=== PATIENT | female | born 2000 | race Caucasian/White ===

== ENCOUNTER 2018-11-23 09:40 | Emergency (ER) | payer BC ==
[~2018-11-23] VITALS: Ht 167.6 cm; Wt 96.6 kg
[~2018-11-23 09:40] MED LIST: BUSP15 PO; Bactrim Ds Tab1 EACH PO; Benadryl 50 mg50 MG PO; CEPH500 PO; Cleocin HCl300 MG PO; Fluoxetine HCl20 M1 PO; HYDACE5 PO; IBUP600 PO; Keflex500 MG PO; MONO-LINYAH1 EACH PO; Norco 5-325 Ta1 EACH PO; Pyridium100 MG PO; SULF10OPSA OU; SULTRISS PO; Sprintec1 EACH PO; VENL37.5 PO; Zofran4 MG PO
[2018-11-23 10:04] LABS: Source, Urine Clean Catch
[2018-11-23 10:10] LABS: Bilirubin, Urine Neg (Neg); Blood, Urine 5+ (Neg); Glucose Qualitative, Urine Neg (Neg); Ketones, Urine Neg (Neg); Leukocyte Esterase, Urine 2+ (Neg); Nitrite, Urine Neg (Neg); Protein, Urine 2+ (Neg); Specific Gravity, Urine 1.015 (1.003-1.022); Urobilinogen, Urine NORM (Normal)
[2018-11-23 10:20] LABS: Appearance, Urine Hazy (Clear); Color, Urine Red (P-Yellow)
[2018-11-23 10:21] LABS: Bacteria Few /hpf; Red Blood Cells, Urine 50-100 /hpf (0-2); Squamous Epithelial Cells Few /hpf (Few)
[2018-11-23 10:32] LABS: BASOPHILS ABSOLUTE AUTO 0.07 K/mm3 (0.00-0.23); BASOPHILS PERCENT AUTO 1 % (0-2); EOSINOPHILS PERCENT AUTO 3 % (0-6); Hematocrit 41.2 % (33.0-51.0); Hemoglobin 13.8 g/dL (11.5-16.0); IMMATURE GRAN ABSOLUTE AUTO 0.04 K/mm3 (0.00-0.10); IMMATURE GRAN PERCENT AUTO 0 % (0-1); LYMPHOCYTES ABSOLUTE AUTO 1.75 K/mm3 (0.84-5.20); LYMPHOCYTES PERCENT AUTO 14 % (21-46); MONOCYTES ABSOLUTE AUTO 0.91 K/mm3 (0.16-1.47); MONOCYTES PERCENT AUTO 7 % (4-13); Mean Corpuscular HGB 28.6 pg (26.0-34.0); Mean Corpuscular HGB Conc 33.5 g/dL (31.5-36.5); Mean Corpuscular Volume 85 fL (80-100); Mean Platelet Volume 10.9 fL (9.1-12.4); NEUTROPHILS ABSOLUTE AUTO 9.14 K/mm3 (1.96-9.15); NEUTROPHILS PERCENT AUTO 74 % (41-73); Platelet Count 271 K/mm3 (150-400); RDW Standard Deviation 37.4 fL (35.1-46.3); Red Blood Cell Count 4.83 M/mm3 (3.80-5.20); White Blood Cell Count 12.31 K/mm3 (4.00-11.30)
[2018-11-23 10:48] LABS: Alanine Aminotransfer (ALT/SGP 28 U/L (12-78); Albumin, Blood 3.9 g/dL (3.4-5.0); Alk Phos 67 U/L (50-136); Anion Gap 7 mmol/L (6-16); Aspartate Aminotrans (AST/SGOT 16 U/L (12-37); Bilirubin, Total 0.5 mg/dL (0.1-1.0); Blood Urea Nitrogen 12 mg/dL (8-24); Bun/Creatinine Ratio 18.4 (12.0-20.0); CO2, Blood 25 mmol/L (21-32); Calcium, Blood 8.6 mg/dL (8.5-10.1); Chloride, Blood 107 mmol/L (98-108); Creatinine, Blood 0.65 mg/dL (0.40-1.00); Glomerular Filtration Rate >60 (60-); Glucose, Blood 93 mg/dL (70-99); Potassium, Blood 4.1 mmol/L (3.5-5.5); Sodium, Blood 139 mmol/L (136-145); Total Protein, Blood 7.9 g/dL (6.4-8.2)
[2018-11-23] MEDS ORDERED: ONDA4ODT MM (12:26)
[2018-11-23] MEDS ORDERED: IBUP800 PO (12:26)
[2018-11-23] MEDS ORDERED: CEPH500 PO (12:26)
== END 2018-11-23 12:47 | disposition home or self-care (01) ==
LOC: ER 09:40
PROVIDERS: Emergency Medicine
DX: O23.41 Unspecified infection of urinary tract in pregnancy, first trimester (principal); O99.89 Other specified diseases and conditions complicating pregnancy, childbirth and the puerperium; N94.6 Dysmenorrhea, unspecified; Z88.8 Allergy status to other drugs, medicaments and biological substances; Z91.013 Allergy to seafood; Z79.899 Other long term (current) drug therapy; O99.331 Smoking (tobacco) complicating pregnancy, first trimester; F17.210 Nicotine dependence, cigarettes, uncomplicated; Z3A.01 Less than 8 weeks gestation of pregnancy
CPT/HCPCS: 36415; 76801; 76817; 80053; 81001; 81025; 83690; 84702; 85025; 86900; 86901; 87086; 96374; 96375; 99284-25; J1200; J2765; J7120

== ENCOUNTER 2020-09-14 05:38 | Inpatient (IN) | payer BC, OTHER ==
[~2020-09-14] VITALS: Ht 165.1 cm; Wt 92.3 kg
[~2020-09-14 05:38] MED LIST changes: +IBUP800 PO; +ONDA4ODT MM
[2020-09-14] MEDS ORDERED: PROM25 (05:55)
[2020-09-14] MEDS ORDERED: PRENATAL TABLE1 EAC2 (05:55)
[2020-09-14] MEDS ORDERED: BUSP10 PO (05:56)
[2020-09-14 06:16] LABS: BASOPHILS ABSOLUTE AUTO 0.03 K/mm3 (0.00-0.23); BASOPHILS PERCENT AUTO 0 % (0-2); EOSINOPHILS ABSOLUTE AUTO 0.05 K/mm3 (0.00-0.68); EOSINOPHILS PERCENT AUTO 1 % (0-6); Hematocrit 32.8 % (33.0-51.0); Hemoglobin 11.2 g/dL (11.5-16.0); IMMATURE GRAN ABSOLUTE AUTO 0.04 K/mm3 (0.00-0.10); IMMATURE GRAN PERCENT AUTO 0 % (0-1); LYMPHOCYTES ABSOLUTE AUTO 1.95 K/mm3 (0.84-5.20); LYMPHOCYTES PERCENT AUTO 18 % (21-46); MONOCYTES ABSOLUTE AUTO 1.07 K/mm3 (0.16-1.47); MONOCYTES PERCENT AUTO 10 % (4-13); Mean Corpuscular HGB 29.8 pg (26.0-34.0); Mean Corpuscular HGB Conc 34.1 g/dL (31.5-36.5); Mean Corpuscular Volume 87 fL (80-100); Mean Platelet Volume 10.8 fL (9.1-12.4); NEUTROPHILS ABSOLUTE AUTO 7.44 K/mm3 (1.96-9.15); NEUTROPHILS PERCENT AUTO 70 % (41-73); Platelet Count 282 K/mm3 (150-400); RDW Coefficient Variation 12.8 % (11.7-14.2); RDW Standard Deviation 40.3 fL (35.1-46.3); Red Blood Cell Count 3.76 M/mm3 (3.80-5.20); White Blood Cell Count 10.58 K/mm3 (4.00-11.30)
[2020-09-15 06:02] LABS: Hematocrit 32.4 % (33.0-51.0); Hemoglobin 10.8 g/dL (11.5-16.0); Mean Corpuscular HGB 29.7 pg (26.0-34.0); Mean Corpuscular HGB Conc 33.3 g/dL (31.5-36.5); Mean Corpuscular Volume 89 fL (80-100); Mean Platelet Volume 11.2 fL (9.1-12.4); Platelet Count 257 K/mm3 (150-400); RDW Coefficient Variation 12.8 % (11.7-14.2); Red Blood Cell Count 3.64 M/mm3 (3.80-5.20); White Blood Cell Count 13.75 K/mm3 (4.00-11.30)
--- NOTE | 2020-09-15 08:07 | NUR ---
PT WOULD LIKE TO SIGN HER SELF UP
[2020-09-15] MEDS ORDERED: IBU800 MG PO (09:08)
--- NOTE | 2020-09-15 09:11 | NUR ---
DISCHARGE INSTRUCTIONS, WRITTEN AND VERBAL, GIVEN TO PT AND Christian MARES. ANSWERED ALL QUESTIONS AND CONCERNS. IV DISCONTINUED. WRITTEN PRESCRIPTION HANDED TO PATIENT. FOLLOW UP APPOINTMENT TO BE SCHEDULED. PT IS READY FOR DISCHARGE.
--- NOTE | 2020-09-15 09:14 | NUR ---
PT REFUSED FLU AND TDAP VACCINES.
--- NOTE | 2020-09-15 09:57 | NUR ---
FOLLOW UP APPOINTMENT SCHEDULED. PT IS DISCHARGED HOME.
== END 2020-09-15 10:10 | disposition home or self-care (01) | DRG 807 ==
LOC: OBS 05:38 → BC 05:51
PROVIDERS: ADMIT Advanced Practice Midwife
PROC: 10E0XZZ Delivery of Products of Conception, External Approach (ICD-10-PCS; principal; 2020-09-14)
DX: O48.0 Post-term pregnancy (principal); Z37.0 Single live birth; O99.344 Other mental disorders complicating childbirth; F41.9 Anxiety disorder, unspecified; F32.9 Major depressive disorder, single episode, unspecified; O70.0 First degree perineal laceration during delivery; Z3A.41 41 weeks gestation of pregnancy
CPT/HCPCS: 36415; 85025; 85027; 86850; 86900; 86901; J1885; J2590; J7120; U0004

== ENCOUNTER 2024-11-20 06:09 | Day surgery (SDC) | payer OTHER ==
[~2024-11-20] VITALS: Ht 165.1 cm; Wt 83.4 kg
[~2024-11-20 06:09] MED LIST changes: +BUSP10 PO; +IBU800 MG PO; +PRENATAL TABLE1 EAC2; +PROM25
[2024-11-20] MEDS ORDERED: SYMBICORT 160-4.6 GM INH (06:37)
[2024-11-20] MEDS ORDERED: MONT10T PO (06:38)
[2024-11-20] MEDS ORDERED: ALBU90OI INH (06:38)
[2024-11-20] MEDS ORDERED: FLUT1DIS5 INH (06:38)
[2024-11-20] MEDS ORDERED: Lactated Ringer's 1,000 ML IV ONE (07:01)
[2024-11-20] MEDS ORDERED: Midazolam HCl 1MG / ML 2ML Vial ONE (07:08)
[2024-11-20] MEDS ORDERED: propofoL 20 ML IV ONE (07:08)
[2024-11-20] MEDS ORDERED: FentaNYL Citrate 50 MCG/ML 2 ML Injection ONE (07:08)
[2024-11-20] MEDS ORDERED: Rocuronium Bromide 10 MG/ML 5ML Injection IV ONE (07:09)
[2024-11-20] MEDS ORDERED: EPINEPhrine HCl 1 MG/ML 1ML Amp ONE (07:33)
[2024-11-20] MEDS ORDERED: Ketorolac Tromethamine 30mg Vial ONE (07:56)
[2024-11-20] MEDS ORDERED: Dexamethasone Sod Phos 10 MG/ML 1ML VIAL ONE (07:56)
[2024-11-20] MEDS ORDERED: Ondansetron HCl 2 MG / ML 2ML Vial ONE (07:56)
[2024-11-20] MEDS ORDERED: Sugammadex Sodium 200 MG/2ML SDV (100 MG/ML) ONE (08:22)
[2024-11-20] MEDS ORDERED: Ropivacaine 0.5% HCL/PF 5 MG/ML 30ML Vial ONE (08:29)
--- NOTE | 2024-11-20 08:51 | NUR ---
11/20/24 0851 Selena Mishra OCCASIONAL PVC'S NOTED ON MONITOR, DR. MARTINEZ AWARE. PT HAD OCCASIONAL PVC'S IN OR WELL. VSS, ON RA.
--- NOTE | 2024-11-20 08:57 | NUR ---
11/20/24 0857 Stone, Albina LUJAN REMOVED AT END OF SURGERY NO ISSUES NOTED
[2024-11-20 09:06] VITALS: BP 126/82
--- NOTE | 2024-11-20 09:07 | NUR ---
11/20/24 0907 Selena Mishra PT PLACED ON BEDPAN UPON ARRIVAL TO SDU. INFORMED PT THAT SHE HAD CATHETER IN/OUT AT END OF PROCEDURE & HAD BLADDER EMPTIED. WILL MONITOR URINE OUTPUT. PT DENIES PAIN/NAUSEA. ABDOMINAL LAP SITES X3 W/ DERMABOND C/D/I. SCANT DRAINAGE NOTED TO PERIPAD. VSS, ON RA.
== END 2024-11-20 09:58 | disposition home or self-care (01) ==
LOC: ORSCSDS 06:09
DX: Z30.2 Encounter for sterilization (principal); J45.909 Unspecified asthma, uncomplicated; F41.9 Anxiety disorder, unspecified; F32.A Depression, unspecified; F43.10 Post-traumatic stress disorder, unspecified; Z87.891 Personal history of nicotine dependence
CPT/HCPCS: 86850; 86900; 86901; 88302; J0171; J1100; J1885; J2250; J2405; J2704; J2795; J3010

== ENCOUNTER 2025-07-16 08:49 | Emergency (ER) | payer OTHER ==
[~2025-07-16] VITALS: Ht 165.1 cm; Wt 65.8 kg
[~2025-07-16 08:49] MED LIST changes: +ALBU90OI INH; +FLUT1DIS5 INH; +MONT10T PO; +SYMBICORT 160-4.6 GM INH
[2025-07-16 09:20] LABS: BASOPHILS ABSOLUTE AUTO 0.03 K/mm3 (0.00-0.23); BASOPHILS PERCENT AUTO 0 % (0-2); EOSINOPHILS ABSOLUTE AUTO 0.00 K/mm3 (0.00-0.68); EOSINOPHILS PERCENT AUTO 0 % (0-6); Hematocrit 37.9 % (33.0-51.0); Hemoglobin 13.6 g/dL (11.5-16.0); IMMATURE GRAN ABSOLUTE AUTO 0.03 K/mm3 (0.00-0.10); IMMATURE GRAN PERCENT AUTO 0 % (0-1); LYMPHOCYTES ABSOLUTE AUTO 0.96 K/mm3 (0.84-5.20); LYMPHOCYTES PERCENT AUTO 7 % (21-46); MONOCYTES ABSOLUTE AUTO 0.58 K/mm3 (0.16-1.47); MONOCYTES PERCENT AUTO 4 % (4-13); Mean Corpuscular HGB Conc 35.9 g/dL (31.5-36.5); Mean Corpuscular Volume 86 fL (80-100); NEUTROPHILS ABSOLUTE AUTO 11.59 K/mm3 (1.96-9.15); NEUTROPHILS PERCENT AUTO 88 % (41-73); NRBC ABSOLUTE 0.00 K/mm3 (0.00-0.02); NRBC Auto 0.0 /100 WBC (0.0-0.2); Platelet Count 312 K/mm3 (150-400); RDW Coefficient Variation 13.1 % (11.7-14.2); RDW Standard Deviation 40.6 fL (35.1-46.3)
[2025-07-16 09:45] LABS: Alanine Aminotransfer (ALT/SGP 33 U/L (12-78); Albumin, Blood 4.4 g/dL (3.4-5.0); Albumin/Globulin Ratio 1.5 (0.8-1.8); Anion Gap 7 mmol/L (3-11); Aspartate Aminotrans (AST/SGOT 22 U/L (12-37); Bilirubin, Total 1.7 mg/dL (0.1-1.0); Blood Urea Nitrogen 10 mg/dL (8-24); CO2, Blood 29 mmol/L (21-32); Calcium, Blood 9.2 mg/dL (8.5-10.1); Chloride, Blood 108 mmol/L (98-108); Creatinine, Blood 0.70 mg/dL (0.40-1.00); Ethanol (Alcohol), Blood, Med <3 mg/dL; Globulin, Blood 3.0 g/dL (2.2-4.0); Glucose, Blood 111 mg/dL (70-99); Magnesium, Blood 1.8 mg/dL (1.6-2.4); Potassium, Blood 3.5 mmol/L (3.5-5.5); Sodium, Blood 140 mmol/L (136-145); Total Protein, Blood 7.4 g/dL (6.4-8.2)
[2025-07-16] MEDS ORDERED: Mag Sulfate 1 GM/D5% 100ML 100 ML IV ONE (09:55)
[2025-07-16] MEDS ORDERED: ONDA4ODT MM (10:38)
[2025-07-16 11:13] VITALS: BP 132/84
== END 2025-07-16 11:12 | disposition home or self-care (01) ==
LOC: ER 08:49
PROVIDERS: Emergency Medicine
DX: R11.2 Nausea with vomiting, unspecified (principal); M62.838 Other muscle spasm; Z88.1 Allergy status to other antibiotic agents; Z91.041 Radiographic dye allergy status; Z91.013 Allergy to seafood; Z79.899 Other long term (current) drug therapy; Z87.442 Personal history of urinary calculi; Z87.891 Personal history of nicotine dependence
CPT/HCPCS: 80053; 80320; 83735; 85025; 93005; 93010; 96374; 99284-25; J3475